=== PATIENT | male | born 1965 | race Caucasian/White ===

== ENCOUNTER 2024-08-30 05:27 | Inpatient (IN) | payer OTHER, SELFPAY ==
[2024-08-22 10:04] LABS: Absolute Lymphocyte Count 1.78 X10^3/uL (0.83-4.51); Absolute Neutrophil Count 4.9 X10^3/uL (2.0-7.7); Basophil# 0.07 X10^3/uL; Basophil% 0.9 % (0-1); Eosinophil# 0.18 X10^3/uL; Eosinophils% 2.4 % (0-5); Hematocrit 44.4 % (40-54); Hemoglobin 15.1 g/dL (13.0-16.5); Lymphocyte # 1.78 X10^3/ul (0.83-4.51); Lymphocyte % 23.6 % (19-41); Mean Corpuscular Volume 88.1 fL (80-94); Mean Platelet Vol. 9.9 fl (6.2-12.0); Monocyte# 0.55 X10^3/uL; Monocyte% 7.3 % (0-10); NRBC Flagged by Analyzer 0 % (0-5); Neutrophil % 65.1 % (47-70); Platelet Count 241 K/mm3 (150-450); RBC Distribution Width CV 13.2 % (11.6-14.6); RBC Distribution Width SD 42.5 fl (35.1-43.9); Red Blood Count 5.04 M/mm3 (4.6-6.2); White Blood Count 7.5 K/mm3 (4.4-11.0)
[2024-08-22 10:41] LABS: Magnesium 2.3 mg/dL (1.6-2.6)
[2024-08-22 10:59] LABS: Anion Gap 5 (5-15); BUN 13 mg/dL (7-18); BUN/Creat Ratio 14.2 RATIO (10-20); Calcium,Total 9.7 mg/dL (8.5-10.1); Chloride 107 mmol/L (98-107); Creatinine, Serum 0.91 mg/dL (0.70-1.30); EST Glomerular Filtration Rate 91 mL/min (>60); Est Glom Filt Rate - Afr Amer 110 mL/min (>60); Glucose 98 mg/dL (74-106); Potassium 3.8 mmol/L (3.5-5.1); Sodium Level 139 mmol/L (136-145)
[2024-08-22 11:12] LABS: HIV - WCH Non-Reactive (Nonreactive); Hepatitis B Surface Antibody Non-Reactive; Hepatitis C Antibody Non-Reactive (Nonreactive)
[2024-08-23 05:07] LABS: Hepatitis A AB, Total Negative (Negative)
[2024-08-30] MEDS: Magnesium 1 GM over 15 mins IV (06:05)
[2024-08-30] MEDS: 0.9% Normal Saline (1000mL) 1,000 ML 15 ML IV (06:05)
[2024-08-30 06:17] VITALS: BP 148/81; PULSE 90; RESP 18; TEMP 36.6; O2SAT 97; BMI 29.1
[2024-08-30] MEDS: Acetaminophen 500 MG Tablet 1000 MG PO (06:23)
[2024-08-30 06:54] VITALS: BP 148/81; PULSE 90; RESP 18; TEMP 36.6; O2SAT 97
[2024-08-30 07:51] LABS: Bedside Glucose 92 mg/dL (74-106)
[2024-08-30] MEDS: Cefazolin 2 GM in 0.9% Normal Saline (100mL Bag) 100 ML IV (07:51)
[2024-08-30 08:30] VITALS: BP 141/78; PULSE 108; RESP 16; TEMP 36.3; O2SAT 94
[2024-08-30 08:32] VITALS: BP 141/78; BP 148/81; PULSE 101; RESP 20; TEMP 36.3; O2SAT 91
[2024-08-30 08:35] VITALS: BP 138/79; BP 139/74; BP 148/81; PULSE 102; RESP 18; RESP 20; O2SAT 93
[2024-08-30 08:41] VITALS: BP 123/86; BP 148/81; PULSE 98; RESP 18; TEMP 36.3; O2SAT 93
== END 2024-08-30 10:09 | disposition home or self-care (01) | DRG 552 ==
LOC: ACINP 05:28
PROVIDERS: Anesthesiology; Admitting Provider Orthopaedic Surgery Orthopaedic Surgery of the Spine; PCP Family Medicine; Referring Provider Orthopaedic Surgery Orthopaedic Surgery of the Spine; Visit Provider Orthopaedic Surgery Orthopaedic Surgery of the Spine
DX: M51.16 Intervertebral disc disorders with radiculopathy, lumbar region (principal); E78.00 Pure hypercholesterolemia, unspecified; G25.81 Restless legs syndrome; M48.07 Spinal stenosis, lumbosacral region; M48.062 Spinal stenosis, lumbar region with neurogenic claudication; K21.9 Gastro-esophageal reflux disease without esophagitis; M51.370 Other intervertebral disc degeneration, lumbosacral region with discogenic back pain only; Z87.891 Personal history of nicotine dependence
CPT/HCPCS: 36415; 80048; 82962; 83735; 85025; 86703; 86706; 86708; 86803; 86850; 86900; 86901; 87081; 93005; J3475

== ENCOUNTER 2024-09-04 14:02 | Inpatient (IN) | payer OTHER, SELFPAY ==
[2024-09-04] VITALS (24 sets, daily range): BP systolic 121–164; BP diastolic 66–97; PULSE 84–122; RESP 15–18; TEMP 35.9–37.2; O2SAT 43–97; BMI 29.6
[2024-09-04] MEDS: Acetaminophen 500 MG Tablet 1000 MG PO ×2 (06:15→21:44)
[2024-09-04] MEDS: Magnesium 1 GM over 15 mins IV (06:26)
[2024-09-04] MEDS: 0.9% Normal Saline (1000mL) 1,000 ML 15 ML IV ×2 (06:30→13:15)
--- NOTE | 2024-09-04 06:30 | RAD_ITS ---
EXAM: FL FLUOROSCOPY < 1 HOUR CLINICAL INDICATION: ERAS, 360 LUMBAR FUSION L3-L4 L4-L5 L5-S1 TECHNIQUE: Fluoroscopic images performed in multiple projections. Fluoroscopic guidance was provided by a physician. 126.2 seconds, 53.47 mGy. COMPARISON: Lumbar spine radiographs, 06/26/2024. FINDINGS AND RAD/Lumbar Spine 2 or 3 Views IMPRESSION: Intraoperative fluoroscopic images utilized by the operative team. Refer to the operative note for complete details. Electronically Signed: Kenneth Craig DO at 23:27 EST ,
--- NOTE | 2024-09-04 06:42 | PRE.ANES_ITS ---
ASA Classification* ASA Classification ASA Classification: 2 Assessment & Plan Anesthesia* Anesthesia Assessment Anesthesia Assessment: Discussed sedation and/or anesthesia options, risks, benefits, and alternatives with patient/parents/legal guardian/POA. Questions invited. The patient/parents/legal guardian/POA seems to understand and agrees to proceed with anesthesia plan. Reviewed the physical assessment, medical history, allergy history and patient home medications list prior to surgery/procedure/anesthetic and documented any changes. Performed airway and anesthesia risk assessments. Anesthesia Type Anesthesia Type: General Anesthesia Focused Assessment* Temperature: 98.9 F Pulse Rate: 84 Blood Pressure: 129/70 Respiratory Rate: 16 Pulse Ox: 95 Airway Assessment Mouth opens: >3 cm Mallampati Score: II Focused Labs Anesthesia Preop lab: CBC WBC 7.5 K/mm3 (4.4-11.0) 08/22/24 09:36 RBC 5.04 M/mm3 (4.6-6.2) 08/22/24 09:36 Hgb 15.1 g/dL (13.0-16.5) 08/22/24 09:36 Hct 44.4 % (40-54) 08/22/24 09:36 Plt Count 241 K/mm3 (150-450) 08/22/24 09:36 CHEMISTRY Potassium 3.8 mmol/L (3.5-5.1) 08/22/24 09:36 Sodium 139 mmol/L (136-145) 08/22/24 09:36 Magnesium 2.3 mg/dL (1.6-2.6) 08/22/24 09:35 BUN 13 mg/dL (7-18) 08/22/24 09:36 Creatinine 0.91 mg/dL (0.70-1.30) 08/22/24 09:36 Glucose 98 mg/dL (74-106) 08/22/24 09:36 POC Glucose 92 mg/dL (74-106) 08/30/24 06:02 COAG Pre-Assessment Diagnosis/Proposed Procedure Planned Operative Procedure(s): ERAS 360 LUMBAR FUSION L3-4 L4-5,L5-S1 Anesthesia History 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 When Was Last Pacemaker Check QUESTION #4 FULL TEXT: You/Your Family Experience fever (hyperthermia) with Anesthesia Last Oral Intake Last Oral intake: Last Oral Intake NPO since 02:00 09/04/24 06:11 Meds taken in AM with sips of No 09/04/24 06:11 water? Meds patient instructed to take am of surgery PONV PONV - ditto machine operator: PONV - ditto machine operator Female No 08/31/24 11:07 HX of Motion Sickness Yes 08/31/24 11:07 HX of N/V After Surgery No 08/31/24 11:07 Non-Smoker Yes 08/31/24 11:07 Duration of Surgery greater Yes 08/31/24 11:07 than 60 minutes Number of Risk Factors 3 08/31/24 11:07 PONV Score Moderate Risk 08/31/24 11:07 Height & Weight Height & Weight: Anesthesia: Height & Weight Height 5 ft 8 in 09/04/24 06:11 Weight: 88.36 kg 09/04/24 06:11 Body Mass Index (BMI) 29.6 09/04/24 06:11 Respiratory Assessment Respiratory Assessment - ditto machine operator: Respiratory Tract Infection Hx - ditto machine operator Hx Respiratory Tract Infection No 08/31/24 11:07 STOP Sleep Apnea STOP Sleep Apnea - ditto machine operator: STOP Sleep Apnea - ditto machine operator Hx Hypertension No 08/31/24 11:07 Hx Sleep Apnea Yes 08/31/24 11:07 CPAP Yes 08/31/24 11:07 BIPAP No 08/31/24 11:07 Do you snore loudly (louder than talking or can be heard Do you often feel tired/ fatigued/ sleepy during daytime? Has anyone observed you stop breathing during sleep? STOP Results Positive 08/31/24 11:07 QUESTION #5 FULL TEXT : Do you snore loudly (louder than talking or can be heard through closed doors)? 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 Specify any problems Hx of Preganancy in last 3 N/A 08/31/24 11:07 Months Nurse Filling Out Transfusion DSCHRIBER 08/31/24 11:07 & Questions: Date: 08/31/24 08/31/24 11:07 Time: 11:09 08/31/24 11:07 Patient unable to answer at this time (ie. confused, unrespo /Reproduction History /Reproductive History - ditto machine operator: /Reproductive Hx- ditto machine operator Hx Now Gestational Age (in weeks): EDC: Hx Hx Para Hx Section SAB No 08/31/24 11:07 Active Medications Active Medications: Current Medications Generic Name Dose Route Start Last Admin Trade Name Freq PRN Reason Stop Dose Admin Acetaminophen 1,000 mg 09/04/24 07:30 09/04/24 06:15 Acetaminophen 500 Mg Tablet PO 09/04/24 07:31 1,000 mg X1 ONE Administration Tranexamic Acid 1,000 mg/ 110 mls @ 440 mls/hr 09/04/24 07:30 Sodium Chloride IV 09/04/24 07:44 X1 ONE Tranexamic Acid 1,000 mg/ 110 mls @ 440 mls/hr 09/04/24 07:30 Sodium Chloride IV 09/04/24 07:44 X1 ONE Cefazolin Sodium 2 gm/ N/A 20 mls @ 400 mls/hr 09/04/24 07:30 IV 09/04/24 07:32 PREOP ONE Sodium Chloride 1,000 mls @ 15 mls/hr 09/04/24 06:30 09/04/24 06:30 IV 09/09/24 19:49 15 mls/hr .Q48H VASYL Administration Protocol Insulin Human Lispro 1 - 6 unit 09/04/24 07:30 Insulin Lispro 100 Unit/Ml Insuln.Pen SC 09/04/24 18:00 Q4H PRN PRN BG>/= 180, SEE PROTOCOL Protocol PFSH Medical History Wears glasses Marijuana use History of steroid therapy Arthritis High cholesterol Restless legs Back pain Injury of back Migraine headache Injury of head and neck Gastric reflux Former smoker CPAP (continuous positive airway pressure) dependence Shortness of breath on exertion Numbness and tingling of both legs History of pain when walking History of edema History of stress test Home Medications ?Medication ?Instructions ?Recorded ?Last Taken ?Type atorvastatin 20 mg tablet 20 mg PO QDAY CHOLESTEROL 06/26/24 09/03/24 07:00 History hydrocodone-acetaminophen 5-325mg 1 tab PO Q8 PRN pain 06/26/24 Unknown History 5mg-325mg magnesium oxide 400 mg PO QDAY SUPPLEMENT 06/26/24 09/03/24 07:00 History multivitamin (Multiple Vitamins 1 tab PO QAM SUPPLEMENT 06/26/24 09/03/24 07:00 History tablet) omeprazole 20 mg capsule,delayed 20 mg PO QDAY GERD 06/26/24 09/04/24 03:00 History release cranberry 500 mg capsule 500 mg PO DAILY SUPPLEMENT 08/16/24 09/03/24 07:00 History Allergy/AdvReac Type Severity Reaction Status Date / Time No Known Allergies Allergy Verified 09/04/24 06:03 Family History Father CVA (cerebral vascular accident) Aunt Cancer Grandmother Heart disease Paternal Grandfather Heart disease Paternal Surgical History History of esophagogastroduodenoscopy (EGD) Hx of colonoscopy Hx of inguinal hernia repair Hx of inguinal hernia repair History of hernia surgery Social History household members: spouse Smoking Status: Former smoker quit date: 09/13/13 alcohol intake: current details: Umer Review of Systems (Anesthesia) ROS Narrative System reviewed and no additional complaints, except as documented.
--- NOTE | 2024-09-04 07:22 | PCM.HP.BLA ---
History and Physical Date of Admission: 09/04/24 MR#: [id number] Acct: [id number] Name: SAIRA DAVIS Sr. Rep #: [id number] : 1965 58 From: Evens Vaughn MD PCP: Dr. Christ Hayward MD Status: ADM IN Location: [place] [address] History and Physical Date of Admission: 08/30/24 MR#: [id number] Acct: [id number] Name: SAIRA DAVIS Rep #: [id number] : 1965 Provider: Dr. Evens Vaughn MD Age/Sex: 58/M Location: [facility] [place] Status: Signed Intake Vital Signs 06/26/2410:08 Height 5 ft 8 in Weight: 196 lb 8 oz BMI 29.8 Intake Visit Reasons: lumbar spine Chief Complaint: Lumbar Spine Pre-Op Accompanied by: Is patient in pain?: Yes Pain scale (1-10): 2 Allergies No Known Allergies Allergy (Verified 08/22/24 08:07) Medications ?Medication ?Instructions ?Recorded ?Confirmed ?Type atorvastatin 20 mg tablet 20 mg PO QDAY CHOLESTEROL 06/26/24 08/22/24 History hydrocodone-acetaminophen 5-325mg 1 tab PO Q8 PRN pain 06/26/24 08/22/24 History 5mg-325mg magnesium oxide 400 mg PO QDAY SUPPLEMENT 06/26/24 08/22/24 History multivitamin (Multiple Vitamins 1 tab PO QAM SUPPLEMENT 06/26/24 08/22/24 History tablet) omeprazole 20 mg capsule,delayed 20 mg PO QDAY GERD 06/26/24 08/22/24 History release cranberry 500 mg capsule 500 mg PO DAILY SUPPLEMENT 08/16/24 08/22/24 History PFSH Medical History Wears glasses Marijuana use History of steroid therapy Arthritis High cholesterol Restless legs Back pain Injury of back Migraine headache Injury of head and neck Gastric reflux Former smoker CPAP (continuous positive airway pressure) dependence Shortness of breath on exertion Numbness and tingling of both legs History of pain when walking History of edema History of stress test Surgical History History of esophagogastroduodenoscopy (EGD) Hx of colonoscopy Hx of inguinal hernia repair Hx of inguinal hernia repair History of hernia surgery Family History Father CVA (cerebral vascular accident)Aunt CancerGrandmother Heart disease PaternalGrandfather Heart disease Paternal Social History household members: spouse Smoking Status: Former smoker quit date: 09/13/13 alcohol intake: current details: Umer HERNANDEZ lumbar spine Details: This documentation accurately reflects the service provided and the decisions made by me, Dr. Evens Vaughn MD 08/22/24 0803. Part of today?s visit was documented by Amelia Negro ATC, acting as scribe. SAIRA DAVIS is a 58 year old M here today for pre-op lumbar 360 fusion DOS 08/30/2024. Patient states his pain isn't too bad today. He rates it a 2/10. Patient states the pain has gotten a little better but he has had targeted nerve root injections and he thinks these have helped. Patient states the last injection was 07/06/2024. 06/26/24: SAIRA DAVIS is a 58 year old M here today for Lumbar pain. Patient states his back been bothering him since 2006. Patient states he had a bulging disk. 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 Patient know he has spinal stenosis. Patient has been getting injections for 14 years. Patient had facet in Aug 2023 and a Epidural in May. Patient states the injections don't work as good as they use to. Patient sees Dr Dodson out of [place]. Patient is schedule for 07/06 for Nerve root injections. Patient was referred to Dr Swan for his back. Patient does have pain that shoots down his Bilateral legs to his ankles. Patient states left leg is worse. Patient states the thigh of his left leg is numb. Patient does have numbness and tingling down his legs left is worse. Left lower leg pain over the lateral calf. Patient states that his left leg doesn't feel stable and weak. Does say that his left knee has given out on him in the past. Says that the back pain is affecting him more than this leg pain. He has to lean forward when standing to get relief. Patient states that his legs feel like he is walking up a hill. Patient has done PT years ago, nothing recent. Patient takes Hydrocodone 325mg one every 8 hours as needed. Patient is taking Tylenol and Ibuprofen and Aleve daily. Ortho Exam General General: Yes no acute distress Neurologic: Yes alert and Yes oriented x3 Spine SPINE TESTING CERVICAL THORACIC LUMBAR Musculoskeletal Strength 0=absent - 5=normal Details: Neurological exam of the lower extremities shows 5x5 power. Normal sensations across all dermatomes. No hyperreflexia. No midline or paraspinal tenderness. Pain with extension. Coding Level of Care Code Off vis,est,level 4 Diagnoses Other intervertebral disc degeneration, lumbar region with discogenic back pain and lower extremity pain M51.362 Lumbar radiculopathy M54.16 Spinal stenosis of lumbar region with neurogenic claudication M48.062 Time Spent (min) 35 Assessment and Plan Assessment and Plan (1) Other intervertebral disc degeneration, lumbar region with discogenic back pain and lower extremity pain: Status: Acute (2) Lumbar radiculopathy: Status: Acute (3) Spinal stenosis of lumbar region with neurogenic claudication: Status: Acute Plan Again reviewed flexion/extension imaging today in the clinic. Reviewed prior xrays and MRI. Imaging shows L3-4, L4-5, and L5-S1 severe disc degeneration with disc height loss and Modic changes with left worse than right foraminal stenosis. No instability on flexion/extension views. Sagittal imbalance noticed. Again explained imaging findings in detail. He has developed severe left anterior thigh numbness which correlates with the L3-4 left foraminal stenosis when he has severe calf and foot pain and numbness with walking. His neurogenic claudication limits his walking to about 1-2 blocks at a time after which she has to find a place to sit down. He feels that he is hunched over significantly over the last few years due to worsening pain. He has had numerous injections for more than a decade which only helped temporarily. Discussed surgical options in detail including decompression alone versus decompression and fusion. Considering the sagittal imbalance and worsening axial back pain worse than the lower extremity symptoms, recommend L3-S1 into posterior fusion with indirect decompression. Discussed the surgery today and discussed risks and benefits. He has had a functional decrease over the last year and can not lift over 15 pounds. At this time, wishes to proceed with surgery after the first of the year around September-October. The risks of surgery include but are not limited to infection, bleeding, need for blood transfusion, nerve injury, vascular injury, visceral injury, ileus, need for further surgery, DVT, pulm embolism, cardiopulmonary event, hardware failure, pseudoarthrosis, adjacent segment degeneration, persistent pain, persistent weakness and numbness. Patient understands and agrees to proceed with surgery.
[2024-09-04] MEDS: Cefazolin 2 GM in Syringe IV ×3 (07:41→23:44)
[2024-09-04] MEDS: TRANEXAMIC ACID 1,000 MG in 0.9% Normal Saline (100mL Bag) 100 ML 440 MG IV ×2 (07:50→12:35)
[2024-09-04 09:04] LABS: Bedside Glucose 129 mg/dL (74-106)
[2024-09-04] MEDS: Ropivacaine 0.5% 30 ML Vial (12:16)
--- NOTE | 2024-09-04 13:37 | PCM.POST.ANE ---
Anesthesia: Postop Eval I Current Vital Signs Temperature: 97 F Pulse Rate: 118 Blood Pressure: 161/93 Respiratory Rate: 18 Pulse Ox: 96 Oxygen Delivery Method: Simple Mask Oxygen Flow Rate (L/min): 6 Assessment Airway patent: Yes Spontaneous unlabored respirations: Yes Mental status: Awake and Calm nausea: No Vomiting: No Anesthesia Complication: No Fluid Hydration Crystalloid volume administer (ml): 1,500 Total IV fluid infused: 1,500 Progress Note Anesthesia document: Postop Eval 1 completed: Yes
--- NOTE | 2024-09-04 13:51 | OP.PCM_ITS ---
Procedures Musculoskeletal [id number]-29xxx: Other Procedure See Report Operative Report (Standard) Operative Information Date of Procedure: 09/04/24 Pre-Operative Diagnosis: L3-S1 disc degeneration, stenosis with neurogenic claudication, radiculopathy Post-Operative Diagnosis: Same Surgery/Procedure Performed: L3-S1 oblique lumbar lumbar fusion dumper bailer operator: Yes Recycler Forklift Driver Truck Driver: Timi Mcdonnell Tasks completed by nurse first assist: Opening & closing, Dissecting tissue, Hemostasis: Electrocautery, Retracting and Other ([id number] surgery- access) Type of Anesthesia: General RN Documented Start/Stop Times: Operation Date: 09/04/24 07:30 Case Time Into Pre-Op 09/04/24 05:35 Out of Pre-Op 09/04/24 07:39 Anesthesia Start 09/04/24 07:41 Into Room 09/04/24 07:41 Procedure Start 09/04/24 08:22 Procedure End 09/04/24 12:58 Anesthesia End 09/04/24 13:31 Out of Room 09/04/24 13:31 Into Recovery 09/04/24 13:35 Procedure Start Time: 08:22 Procedure Stop Time: 12:58 Select all DRAINS/GRAFTS/IMPLANTS that apply: Graft Graft details: Allograft cancellous bone chips, autologous iliac crest bone marrow aspirate and Implanted device Implanted device details: DePuy cougar lateral lumbar interbody cage?peek Estimated Blood Loss: 150 cc Specimen collected: No Description of surgery: Preoperative diagnosis: L3-S1 disc degeneration, stenosis with neurogenic claudication Postoperative diagnosis: Same Name of procedures L3-S1 oblique lumbar interbody fusion (OLIF), minimally invasive left sided approach, lateral decubitus: ? L3-4 anterolateral spinal fusion 10479 ? L4-5 anterolateral fusion 80624/51 ? L5-S1 anterolateral fusion 75942/51 ? L3-4 insertion of cage 20526 ? L4-5 insertion of cage 64233/51 ? L5-S1 insertion of cage 76852/51 ? Bone graft aspirate left iliac crest separate incision ? Allograft cancellous chips Attending Surgeon: Dr. Evens Vaughn Co-surgeon: Dr. Timi Mcdonnell Estimated blood loss: 150 mL Anesthesia: General Complications: None Indications: Patient is a 58-year-old pleasant gentleman who has had a long history of low back pain and left lower extremity radiation, difficulty walking distances. Xrays & MRI revealed L3-S1 disc degeneration with stenosis especially foraminal worse on the left. After undergoing a prolonged period of nonoperative treatment, the patient elected to undergo surgical decompression & fusion. All surgical options were discussed with the patient including anterior and posterior approaches. All risks and benefits associated with the procedure were explained to the patient. The risks include but are not limited to infection, bleeding, injury to nerves and vessels including major vessels like IVC and aorta, persistent paresthesia, persistent pain, dural tear, need for further procedures, adjacent segment degeneration, pseudoarthrosis, hardware failure, retrograde ejaculation, paralytic ileus, etc. Procedure: The patient was identified in the preoperative holding suite using Unique patient identifiers. Skin was marked, consent was reviewed, and all questions were answered. The patient was then brought back to the operative room. A surgical timeout was performed to make sure correct procedure was being done on the correct patient and all operative room staff were on the same page. General endotracheal anesthesia was then given to the patient. Montes catheter was inserted. The patient was then carefully positioned in right lateral decubitus position with the left side up on a regular OR table. Axillary roll was placed and all bony prominences were well- padded. Hip positioners were placed in the posterior buttocks and anterior sternal area. The surgical area was prepped and draped in usual fashion. Preoperative antibiotic was injected IV as preoperative antibiotic. A final timeout was then again done just before starting the procedure. A 2 inch incision oblique was taken in the left lower quadrant of the abdomen 2 fingerbreadths away from the iliac crest and the lower ribs. Sharp dissection with Bovie was carried out up to the fascia covering the external oblique. The external oblique, internal oblique and transversus abdominis muscles were split along the muscle fibers and retroperitoneal space was entered. Sponge sticks were utilized to move the bowel and peritoneum [id number]-[id number]-way and psoas muscle was exposed staying within the retroperitoneal plane. [email or web address] retractor system was positioned and the retractor blade was applied onto the psoas. The interval between psoas and midline structures was developed and appropriate retractors were placed. Once adequate interval was cleared, a disc space was identified and a marker x-ray was taken. This identified the L4-5 disc level. The prepsoas interval was then traced inferiorly to expose the lateral aspect of the L5-S1 disc. This was also confirmed on x-rays. Small tributary to the left common iliac vein was identified and bipolar was used to coagulated. Annulotomy was done with a long handled knife. Pituitary was used to remove disc material. Curettes were used to prepare the endplates. Disc space spreaders were utilized to distract and increase the disc height. Near complete discectomy was performed. Trials of serially increasing sizes were used. A Jamshidi needle was used to aspirate bone marrow from the left anterior iliac crest through a separate incision and this aspirate was mixed with the allograft bone chips. A Depuy [place] cage of size of the 18 x 40 x 12 mm with 15 degrees lordosis was packed with corticocancellous allograft bone chips mixed with bone marrow aspirate. This was inserted into the L5-S1 disc space. The retractors were then repositioned to expose the L3-4 and L4-5 disc and the procedure was repeated with complete discectomy and endplate preparation. Smaller disc distractors were also used to bluntly perform a contralateral annulotomy at the L3-4 and L4-5 levels. Cage size was 18 x 45 x 12 mm at both L3-4 and L4-5. AP and lateral C-arm pictures were taken to confirm good position of the cage. Some bone chips were also packed around the cages. Screw with washer was placed into the lower L4 body with a washer partially covering the cage at L4-5. Hemostasis was confirmed. The retractor blades were removed. Closure was done in layers with a continuous strand of # 1 Vicryl in all muscle layers. 2-0 Vicryl was used for subcutaneous tissue and 4-0 for Monocryl for the skin. Steri-Strips were applied and 4 x 4 gauze and Tegaderm were applied. Surgical Findings: See operative note Complications Complications: No
--- NOTE | 2024-09-04 13:57 | OP.PCM_ITS ---
Procedures Musculoskeletal 20xxx-29xxx: Other Procedure See Report Operative Report (Standard) Operative Information Date of Procedure: 09/04/24 Pre-Operative Diagnosis: L3-S1 disc degeneration, stenosis with neurogenic claudication, radiculopathy Post-Operative Diagnosis: Same Surgery/Procedure Performed: L3-S1 posterior spinal instrumented fusion confectionery maker: Yes Online Advertising Analyst: Sushil Henderson Tasks completed by customer assistance associate: Closing, Implanting device and Retracting Type of Anesthesia: General RN Documented Start/Stop Times: Operation Date: 09/04/24 07:30 Case Time Into Pre-Op 09/04/24 05:35 Out of Pre-Op 09/04/24 07:39 Anesthesia Start 09/04/24 07:41 Into Room 09/04/24 07:41 Procedure Start 09/04/24 08:22 Procedure End 09/04/24 12:58 Anesthesia End 09/04/24 13:31 Out of Room 09/04/24 13:31 Into Recovery 09/04/24 13:35 Procedure Start Time: 08:22 Procedure Stop Time: 12:58 Select all DRAINS/GRAFTS/IMPLANTS that apply: Graft Graft details: Allograft cancellous bone chips, autologous iliac crest bone marrow aspirate and Implanted device Implanted device details: DePuy [employer] Sensor Internationaler prime pedicle screw instrumentation Estimated Blood Loss: 150 cc Specimen collected: No Description of surgery: Preoperative diagnosis: L3-S1 disc degeneration, stenosis with neurogenic claudication Postoperative diagnosis: Same Name of procedures: L3-S1 posterior percutaneous pedicle screw instrumented fusion, prone: ? L3-4 posterior spinal fusion 11775 ? L3-S1 posterior pedicle screw instrumentation 51098 ? L4-5 posterior fusion 20578/51 ? L5-S1 posterior fusion 25530/51 ? Allograft cancellous chips Attending Surgeon: Dr. Evens Vaughn Estimated blood loss: 150 mL (total for entire case) Anesthesia: General Complications: None Description of procedure: After the anterior procedure was complete, the patient was then turned supine. The patient was then transferred to Bright table in prone position. Back was prepped and draped in usual fashion. C-arm AP view was then taken. C-arm was positioned in a way that L3 was centralized and superior endplate of was parallel to the beam. Spinous process was centered between the pedicles. Midline was marked with skin marker and lateral borders of the pedicles were also marked. Skin marker was also utilized to bubba transversely across the middle of the pedicles at L3. 2 transverse paramedian incisions of 1 inch were placed. The fascia was incised vertically. Finger dissection was utilized to palpate the transverse process and facet joint. Viper Prime screws with towers were inserted and docked onto the transverse processes. This was then slowly moved medially to reach the superior articular process of L3. This was then confirmed on C-arm and then a mallet was utilized to drive the trocar into the pedicle going up to the medial wall of the pedicle on AP view. This was performed both sides. C-arm lateral view confirmed that the tip of the trocar was in the vertebral body, and the screw was advanced into the pedicle and vertebral body. This was repeated similarly at L5 and S1 bilaterally. Screw sizes were 7 x 50 mm at L3 bilaterally, and 7 x 45 mm at L5 and S1 on both sides. 100 mm precontoured titanium 5.5 mm lordotic nilson on the right and 90 mm on the left were then passed through the screw extensions and reduced down to the screws with the help of MobiK[employer] instrumentation system on both sides. AP and lateral view of the C-arm showed good positioning of the screws and cages. Final tightening with the torque screwdriver was then completed. Ioana was utilized to roughen the facet joint at L3-4, L4-5 and L5-S1 on the right side. Cancellous allograft bone chips mixed with bone marrow aspirate were then placed over this decorticated area. Hemostasis was achieved. Closure was done in layers with 0 Vicryls for the fascia, 2-0 Vicryls for the subcutaneous tissue, and Monocryl for the skin. Dermabond was applied. Dressings were applied covered with Tegaderm. The patient was then turned supine onto a hospital bed. The patient was extubated and taken to PACU in stable condition. The patient tolerated the procedure well and no complications occurred. DepInsurance Business Applicationsgar cage & Viper Prime minimally invasive pedicle screw instrumentation system was utilized in this case. No dural tear was identified intraoperatively. I was present for the entirety of the case and performed the surgery. Surgical Findings: See operative note Complications Complications: No
[2024-09-04] MEDS: Ketorolac 15 MG/ML Vial IV ×2 (14:54→23:54)
--- NOTE | 2024-09-04 15:10 | POSTOPAN2_ITS ---
Anesthesia Postop Eval I Sum Postop Eval Completion status Anesthesia document: Postop Eval 1 completed: Yes Anesthesia Postop Eval I Summary Anesthesia Postop Eval I Summary: Anesthesia Postop Eval I: Assessment Summary Airway patent Yes 09/04/24 13:38 STEREO EQUIPMENT [email or web address] Spontaneous unlabored Yes 09/04/24 13:38 STEREO EQUIPMENT REPAIRER.[email or web address] respirations Mental status Awake,Calm 09/04/24 13:38 STEREO EQUIPMENT [email or web address] nausea No 09/04/24 13:38 STEREO EQUIPMENT [email or web address] Vomiting No 09/04/24 13:38 STEREO EQUIPMENT REPAIRER.[email or web address] Anesthesia Postop Eval I: Fluid Summary Crystalloid volume administer 1,500 09/04/24 13:38 STEREO EQUIPMENT [email or web address] (ml) Colloids volume administered ( ml) Blood Product volume administered (ml) Total IV fluid infused 1,500 09/04/24 13:38 STEREO EQUIPMENT REPAIRER.[email or web address] Anesthesia Postop Eval I: Summary Notes Anesthesia Complication No 09/04/24 13:38 STEREO EQUIPMENT REPAIRER.[email or web address] Anesthesia Complication Comment: Post-operative progress note Anesthesia: Postop Eval II Evaluation Mental status: Awake and Calm Pain Level: 2 nausea: No Vomiting: No Complications Anesthesia Complication: No
--- NOTE | 2024-09-04 15:10 | PCM.POSTANE2 ---
Anesthesia Postop Eval I Sum Postop Eval Completion status Anesthesia document: Postop Eval 1 completed: Yes Anesthesia Postop Eval I Summary Anesthesia Postop Eval I Summary: Anesthesia Postop Eval I: Assessment Summary Airway patent Yes 09/04/24 13:38 PUBLIC EMPLOYMENT [email or web address] Spontaneous unlabored Yes 09/04/24 13:38 PUBLIC EMPLOYMENT MEDIATOR.[email or web address] respirations Mental status Awake,Calm 09/04/24 13:38 PUBLIC EMPLOYMENT MEDIATOR.[email or web address] nausea No 09/04/24 13:38 PUBLIC EMPLOYMENT MEDIATOR.[email or web address] Vomiting No 09/04/24 13:38 PUBLIC EMPLOYMENT MEDIATOR.[email or web address] Anesthesia Postop Eval I: Fluid Summary Crystalloid volume administer 1,500 09/04/24 13:38 PUBLIC EMPLOYMENT MEDIATOR.[email or web address] (ml) Colloids volume administered ( ml) Blood Product volume administered (ml) Total IV fluid infused 1,500 09/04/24 13:38 PUBLIC EMPLOYMENT MEDIATOR.[email or web address] Anesthesia Postop Eval I: Summary Notes Anesthesia Complication No 09/04/24 13:38 PUBLIC EMPLOYMENT MEDIATOR.[email or web address] Anesthesia Complication Comment: Post-operative progress note Anesthesia: Postop Eval II Evaluation Mental status: Awake and Calm Pain Level: 2 nausea: No Vomiting: No Complications Anesthesia Complication: No
[2024-09-04] MEDS: Ondansetron 4 MG/2 ML Vial IV (15:47)
[2024-09-04] MEDS: Morphine 4 MG/ML Syringe IV (15:47)
[2024-09-04] MEDS: 0.9% Saline Lock 10 ML Syringe IV ×3 (16:38→23:54)
[2024-09-04] MEDS: oxyCODONE 5 MG Tablet PO (16:38)
--- NOTE | 2024-09-04 16:43 | PN.HOSP_ITS ---
Subjective Subjective 58-year-old male hx of GERD and SONIA presented to [facility] 09/04/2024 for L3-S1 disc degeneration, stenosis with neurogenic claudication, and radiculopathy and underwent L3-S1 posterior spinal instrumented fusion with Dr. Vaughn 09/04/24. Hospitalist consulted for postoperative medical management. Patient evaluated at bedside postoperatively, he is currently being readjusted due to having some pain, denies any shortness of breath but O2 sat is low to mid 90s who is presently being placed on CPAP for further comfort. Aside from pain he denied any other new or acute complaints Objective Data Objective Data Vital Signs: Vital Signs Temp Pulse Resp BP Pulse Ox O2 Del Method O2 Flow Rate 97.7 F L 111 H 15 139/66 H 92 CPAP 4 09/04/24 15:38 09/04/24 15:38 09/04/24 15:38 09/04/24 15:38 09/04/24 16:23 09/04/24 16:23 09/04/24 16:23 Oxygen Flow Rate (L/min) 4 Oxygen Delivery Method CPAP Weight: 88.36 kg Body Mass Index (BMI) 29.6 Intake & Output: Intake and Output for Last 24 Hours 09/02/24 09/03/24 09/04/24 23:59 23:59 23:59 Intake Total 1389 / 1389 Output Total 400 / 400 Balance 989 / 989 Lab / Micro Data Labs: Laboratory Results - last 24 hr 09/04/24 06:02: POC Glucose 129 H Physical Exam Narrative General: Alert, oriented, trying to get comfortable HEENT: Atraumatic, normocephalic Eyes: Anicteric, normal conjunctiva, extraocular movements grossly intact Neck: Supple Respiratory: Clear to auscultation bilaterally, normal respiratory effort Cardiovascular: Regular rate and rhythm GI: Soft, nontender, nondistended Extremities: No edema Musculoskeletal: Moving all extremities Neuro: No overt focal neurological deficits Skin: No rashes appreciated Psych: Cooperative Assessment & Plan Assessment/Plan (1) Lumbar radiculopathy: PLAN: Plan # Postoperative hypoxia -Patient not in respiratory distress -Presently 93% on nasal cannula but being placed on CPAP as he is laying down in bed and still has nasal cannula requirement -I/S -Monitor clinically, can consider chest x-ray or further workup if this persists however given lack of further worsening with no wheezes or rhonchi and patient not complaining of any shortness of breath feel, feel it is reasonable to try to wean O2 and monitor clinically first #GERD -Continue PPI #SONIA -Continue home NIPPV # L3-S1 disc degeneration, stenosis with neurogenic claudication, and radiculopathy - underwent L3-S1 posterior spinal instrumented fusion with Dr. Vaughn 09/04/24 -Management per primary #DVT ppx: At the discretion of primary Julieta Mccray MD Time spent in the patient's overall evaluation, decision-making process, review of diagnostic data, adjustment of management, discussion with other providers, nursing and ancillary staff involved in patient's care documentation, 21 Minutes Charges/Coding Visit Charges Office Visits / Consults: 40540 OV L3 Est 20min
--- NOTE | 2024-09-04 17:05 | PCM.OPRPT ---
Operative Report (Standard) Operative Information Date of Procedure: 09/04/24 Pre-Operative Diagnosis: L3-S1 disc degeneration, stenosis with neurogenic claudication Post-Operative Diagnosis: same Surgery/Procedure Performed: L3-S1 oblique lumbar interbody fusion (OLIF), minimally invasive left sided approach, lateral decubitus: ? L3-4 anterolateral spinal fusion 77025 ? L4-5 anterolateral fusion 72542/51 ? L5-S1 anterolateral fusion 83037/51 ? L3-4 insertion of cage 96023 ? L4-5 insertion of cage 44146/51 ? L5-S1 insertion of cage 78059/51 ? Bone graft aspirate left iliac crest separate incision ? Allograft cancellous chips foster care social worker: No Type of Anesthesia: General RN Documented Start/Stop Times: Operation Date: 09/04/24 07:30 Case Time Into Pre-Op 09/04/24 05:35 Out of Pre-Op 09/04/24 07:39 Anesthesia Start 09/04/24 07:41 Into Room 09/04/24 07:41 Procedure Start 09/04/24 08:22 Procedure End 09/04/24 12:58 Anesthesia End 09/04/24 13:31 Out of Room 09/04/24 13:31 Into Recovery 09/04/24 13:35 Out of Recovery 09/04/24 15:34 Procedure Start Time: 08:22 Procedure Stop Time: 11:00 Select all DRAINS/GRAFTS/IMPLANTS that apply: Graft Graft details: Allograft cancellous bone chips, autologous iliac crest bone marrow aspirate and Implanted device Implanted device details: DePuy cougar lateral lumbar interbody cage?peek Estimated Blood Loss: 150 Specimen collected: No Description of surgery: HPI: Patient is a 58-year-old male with multilevel lumbar degenerative disc disease and neurogenic claudication. He has been evaluated by Dr. Vaughn and felt to be appropriate for L3-L4, L4-L5, L5-S1 oblique lumbar interbody fusion. Vascular surgery assistance is requested for exposure. Description of procedure: Upon obtaining form consent and verification correct patient procedure site patient was taken to the operating where he was placed under general anesthesia. He was then positioned prepped and draped in usual sterile fashion time was performed. Skin incision was made parallel to the left iliac crest above electrocautery was dissect down through subcutaneous tissue down to the level the fascia. Hand-held retractors then put in position utilized to develop sufficient working space superficial to the fascia. Fascia was then incised and the muscle layers of the abdominal wall split parallel to their fibers individually and hand-held retractors moved deeper into the wound. Once the transversalis was split blunt dissection was then utilized to mobilize the retroperitoneum until the psoas muscle was visualized. At this point the Syn frame self-retaining retractor system was put into position and blades placed to expose the psoas and the lateral aspect of the vertebral column. At this point blunt and Bovie dissection was utilized to further mobilize the tissue until the elbow for L5 disc was visualized. At this point the position was confirmed with fluoroscopy and Bovie utilized to bubba the disc for later intervention. We then turned our attention distally dissecting down to the L5-S1 disc space with self-retaining retractor blades repositioned. Once the disc was visualized position was confirmed with fluoroscopy and at this point Dr. Vaughn performed discectomy and implant which she will describe separately in further detail. Once this was completed we then turned our attention to the L4-L5 disc space. Again Dr. Vaughn performed the discectomy which she will describe in further detail and Gelfoam was placed in the disc base. Finally combination of blunt and Bovie dissection was utilized to dissect free the L3-L4 disc space. Once satisfactory visualization was obtained Dr. Vaughn performed discectomy and implant placement which she will describe in further detail. Finally we returned to the elbow for L5 disc the implant placement will be described by Dr. Vaughn and separate dictation. The retroperitoneum was then inspected for hemostasis and self-retaining retractors removed from position allowing the abdominal contents to return to their position. The superficial wound was then copiously irrigated and the muscle layer was closed individually with running 1 Vicryl suture. After each of the muscle layers were closed the subcutaneous wound was further irrigated and the skin closed with 3-0 Vicryl followed by 4 Monocryl. Dry sterile dressings were then applied and the patient was repositioned for posterior approach which Dr. Vaughn will describe in his dictation. Surgical Findings: See above Complications Complications: No
[2024-09-04] MEDS: proCHLORPERazine 10 MG/2 ML Vial 5 MG IV (17:25)
[2024-09-04] MEDS: Methocarbamol 500 MG Tablet 1000 MG PO ×2 (18:20→21:44)
[2024-09-04] MEDS: Senna/Docusate Sodium 1 Tablet 2 TABLET PO (21:44)
[2024-09-05] VITALS (7 sets, daily range): BP systolic 129–146; BP diastolic 65–88; PULSE 97–105; RESP 16–18; TEMP 36.6–37.1; O2SAT 94–99
[2024-09-05] MEDS: Acetaminophen 500 MG Tablet 1000 MG PO ×3 (05:57→21:17)
--- NOTE | 2024-09-05 06:00 | RAD_ITS ---
INDICATION: Status post lumbar fusion -- Please do upright AP lateral on postop day 1 brooks EXAMINATION/TECHNIQUE: X-RAY - XR Spine Lumbar 2 or 3 Views COMPARISON: Prior study dated: 06/26/2024 FINDINGS: Surgical hardware posterior vertical bars, pedicle screws and interbody devices from L3 to S1. The vertebral bodies are normal in height. No definite fracture demonstrated. No subluxation. No paravertebral soft tissue mass identified. RAD/Lumbar Spine 2 or 3 Views IMPRESSION: Postsurgical changes with hardware in place. No subluxation. Electronically Signed: Edda Jama MD at 8:12 EST ,
[2024-09-05 07:51] LABS: Hematocrit 38.9 % (40-54); Mean Corp Hgb Conc 33.4 g/dL (32-36); Mean Corpuscular Hgb 30.1 pg (27.0-32.0); Mean Platelet Vol. 9.6 fl (6.2-12.0); Platelet Count 209 K/mm3 (150-450); RBC Distribution Width CV 13.3 % (11.6-14.6); RBC Distribution Width SD 43.9 fl (35.1-43.9); Red Blood Count 4.32 M/mm3 (4.6-6.2); White Blood Count 12.9 K/mm3 (4.4-11.0)
[2024-09-05] MEDS: oxyCODONE 5 MG Tablet PO ×4 (07:55→21:16)
[2024-09-05] MEDS: Ketorolac 15 MG/ML Vial IV (07:55)
[2024-09-05] MEDS: 0.9% Saline Lock 10 ML Syringe IV ×2 (07:56→21:16)
[2024-09-05 08:17] LABS: Anion Gap 6 (5-15); BUN 14 mg/dL (7-18); BUN/Creat Ratio 14.1 RATIO (10-20); Calcium,Total 8.5 mg/dL (8.5-10.1); Chloride 102 mmol/L (98-107); Creatinine, Serum 0.99 mg/dL (0.70-1.30); EST Glomerular Filtration Rate 83 mL/min (>60); Est Glom Filt Rate - Afr Amer 100 mL/min (>60); Estimated Creatinine Clearance 90.01 ml/min; Glucose 120 mg/dL (74-106); Potassium 3.8 mmol/L (3.5-5.1); Sodium Level 138 mmol/L (136-145)
[2024-09-05] MEDS: Multivitamins,Therapeutic Tablet 1 TABLET PO (10:01)
[2024-09-05] MEDS: Meloxicam 15 MG Tablet PO (10:01)
[2024-09-05] MEDS: Methocarbamol 500 MG Tablet 1000 MG PO ×4 (10:01→21:17)
[2024-09-05] MEDS: Magnesium Chloride 64 MG Delay Rel.Tablet 128 MG PO (10:01)
[2024-09-05] MEDS: Pantoprazole Sodium 20 MG Tablet PO (10:01)
[2024-09-05] MEDS: Atorvastatin Calcium 20 MG Tablet PO (10:02)
[2024-09-05] MEDS: Senna/Docusate Sodium 1 Tablet 2 TABLET PO ×2 (10:02→21:18)
[2024-09-05] MEDS: Bisacodyl 5 MG Tablet PO (10:02)
--- NOTE | 2024-09-05 11:58 | CASEMGMT ---
BOOKER EASON Assessment: Face to Face with pt for initial transition planning/care coordination assessment. BOOKER EASON introduced self and role at [facility], pt voices understanding and consents to assessment. Pt is A&O x4 and answers all questions appropriately at this time. Pt sitting up in chair in no distress. Care providers, pharmacy, and demographics verified/updated. Admitting Dx: s/p lumbar fusion Strata Score: 1 PCP:[facility] Specialists:[facility], pain mgmt; [facility] in [place], cannot recall the name Preferred Pharmacy: [facility] Insurance: [employer] Prescription Benefit: yes LNOK: Kimi Stoll, Living Arrangements: Pt lives with in a single story home with 13 steps to enter with a rail. Pt reports prior to surgery he was I in ADLs and IADLs. Pt denies concerns at home. Transportation: Pt drives self and denies concerns with transportation. Pt will transport pt until he can drive again. DME:cpap, cane, ww, [facility] HHC/SNF: Denies hx of Pt states no concerns with going home at time of dc. Pt states no further concerns/needs. CM to follow. Advised pt to ask CM if any further question/concerns/needs arise, voices understanding. Pt Goal: Home Plan: Home Chuck CELESTE CM
--- NOTE | 2024-09-05 13:35 | PCM.PN.ORT ---
Subjective Subjective Postop day 1 status post L3-S1 fusion. No flatus yet. Tolerating liquid diet. Had some low oxygen saturations last night but improved with CPAP, which he routinely uses for sleep apnea. Voiding urine spontaneously. Objective Data Objective Data Vital Signs: Vital Signs Temp Pulse Resp BP Pulse Ox O2 Del Method O2 Flow Rate 98.5 F 105 H 18 138/80 H 99 Room Air 3 09/05/24 08:04 09/05/24 08:04 09/05/24 08:04 09/05/24 08:04 09/05/24 08:04 09/05/24 08:04 09/04/24 21:43 Oxygen Flow Rate (L/min) 3 Oxygen Delivery Method Room Air Weight: 194 lb 12.8 oz Body Mass Index (BMI) 29.6 Intake & Output: Intake and Output for Last 24 Hours 09/03/24 09/04/24 09/05/24 23:59 23:59 23:59 Intake Total 1429 / 1429 1000 / 1000 Output Total 800 / 800 2100 / 2100 Balance 629 / 629 -1100 / -1100 Lab / Micro Data 09/05/24 07:41 09/05/24 07:41 Labs: Laboratory Results - last 24 hr 09/05/24 07:41: WBC 12.9 H, RBC 4.32 L, Hgb 13.0, Hct 38.9 L, MCV 90.0, MCH 30.1, MCHC 33.4, RDW Std Deviation 43.9, RDW Coeff of Tara 13.3, Plt Count 209, MPV 9.6, Sodium 138, Potassium 3.8, Chloride 102, Carbon Dioxide 30.0, Anion Gap 6, BUN 14, Creatinine 0.99, Estim Creat Clear Calc 90.01, Est GFR (MDRD) Af Amer 100, Est GFR (MDRD) Non-Af 83, BUN/Creatinine Ratio 14.1, Glucose 120 H, Calcium 8.5 Radiography Diagnostic Testing: Radiology Impression Lumbar Spine X-Ray 09/04/24 06:30 IMPRESSION: Intraoperative fluoroscopic images utilized by the operative team. Refer to the operative note for complete details. Electronically Signed: Kenneth Craig DO at 23:27 EST , Lumbar Spine X-Ray 09/05/24 06:00 IMPRESSION: Postsurgical changes with hardware in place. No subluxation. Electronically Signed: Edda Jama MD at 8:12 EST , Physical Exam Narrative Dressing?CDI. Neurologic motion lower extremity shows 5 x 5 power normal shows normal sensations in all dermatomes. Assessment & Plan Assessment/Plan (1) Status post lumbar spinal fusion: PLAN: Plan Postop day 1 status post L3-S1 fusion. Patient doing well. No flatus yet. Will continue clear liquids until passing flatus. Once he passes flatus, he can advance to solid food, and if he tolerates a solid meals, okay to go home. Patient on Dulcolax and senna. Will advance with suppository tomorrow morning if no gas. X-rays reviewed, look good. PT cleared. Follow-up in clinic in 2 weeks.
--- NOTE | 2024-09-05 17:32 | PCM.PN.HOSP ---
Reason for Visit Reason for Visit: Diagnoses Radiculopathy, lumbar region (09/04/24) Arthrodesis status (09/04/24) Subjective Subjective Patient was seen and examined today, he has not yet had flatus, if he passes flatus orthopedic surgery has released him to be discharged. Objective Data Objective Data Vital Signs: Vital Signs Temp Pulse Resp BP Pulse Ox O2 Del Method O2 Flow Rate 98.8 F 103 H 18 129/77 H 96 Room Air 3 09/05/24 15:50 09/05/24 15:50 09/05/24 15:50 09/05/24 15:50 09/05/24 15:50 09/05/24 15:50 09/04/24 21:43 Oxygen Flow Rate (L/min) 3 Oxygen Delivery Method Room Air Weight: 88.36 kg Body Mass Index (BMI) 29.6 Intake & Output: Intake and Output for Last 24 Hours 09/03/24 09/04/24 09/05/24 23:59 23:59 23:59 Intake Total 1429 / 1429 1000 / 1000 Output Total 800 / 800 2100 / 2100 Balance 629 / 629 -1100 / -1100 Lab / Micro Data 09/05/24 07:41 09/05/24 07:41 Labs: Laboratory Results - last 24 hr 09/05/24 07:41: WBC 12.9 H, RBC 4.32 L, Hgb 13.0, Hct 38.9 L, MCV 90.0, MCH 30.1, MCHC 33.4, RDW Std Deviation 43.9, RDW Coeff of Tara 13.3, Plt Count 209, MPV 9.6, Sodium 138, Potassium 3.8, Chloride 102, Carbon Dioxide 30.0, Anion Gap 6, BUN 14, Creatinine 0.99, Estim Creat Clear Calc 90.01, Est GFR (MDRD) Af Amer 100, Est GFR (MDRD) Non-Af 83, BUN/Creatinine Ratio 14.1, Glucose 120 H, Calcium 8.5 Radiography Diagnostic Testing: Radiology Impression Lumbar Spine X-Ray 09/04/24 06:30 IMPRESSION: Intraoperative fluoroscopic images utilized by the operative team. Refer to the operative note for complete details. Electronically Signed: Kenneth Craig DO at 23:27 EST , Lumbar Spine X-Ray 09/05/24 06:00 IMPRESSION: Postsurgical changes with hardware in place. No subluxation. Electronically Signed: Edda Jama MD at 8:12 EST , Physical Exam Const alert, oriented x3, no apparent distress, average body habitus and healthy appearing General Appearance: cooperative, well kempt and well developed Orientation / Consciousness: awake, oriented to person, oriented to place and oriented to time HEENT normocephalic, head/scalp atraumatic and moist oral mucous membranes Eyes PERRL, EOMs intact bilaterally and conjunctivae normal Neck supple, no JVD, thyroid normal and no carotid bruits General: trachea midline Resp normal respiratory effort, no retractions, no use of accessory muscles and clear to auscultation bilaterally Auscultation: Negative for rales, rhonchi or wheezes Cardio regular rate, regular rhythm, S1 normal heart sound, S2 normal heart sound, no murmurs, no rub and no gallops GI normal to inspection, nondistended, normoactive bowel sounds, soft to palpation, non-tender and non-distended Extremity no clubbing, cyanosis or edema Skin no rashes or lesions noted General Skin Exam: no breakdown Neuro oriented x3, CN's II-XII intact bilaterally, moves all extremities, no focal motor deficits and no sensory deficits noted Sensorium / Orientation: awake and alert Speech: speech normal Psych affect normal Assessment & Plan Assessment/Plan (1) Status post lumbar spinal fusion: PLAN: Plan 1. Hyperlipidemia-patient is on atorvastatin daily #2 GERD-patient is on a PPI #3 degenerative joint disease of the lumbar spine-status post L3- S1 fusion, PT and OT continue to work with patient Total clinical time spent by myself addressing the patient's medical issues, reviewing all of his data, and collaborating with patient's care team: 25 minutes Charges/Coding Visit Charges Inpatient E&M: 43469 Subs Hosp L1
[2024-09-05] MEDS: Ondansetron 4 MG/2 ML Vial IV (21:16)
[2024-09-06] MEDS: oxyCODONE 5 MG Tablet PO ×3 (01:54→10:27)
[2024-09-06 02:10] VITALS: BP 142/82; PULSE 91; RESP 16; TEMP 36.6; O2SAT 93
[2024-09-06] MEDS: Acetaminophen 500 MG Tablet 1000 MG PO ×2 (06:05→13:41)
[2024-09-06] MEDS: Methocarbamol 500 MG Tablet 1000 MG PO ×2 (06:05→13:41)
[2024-09-06 07:51] VITALS: BP 139/89; PULSE 102; RESP 18; TEMP 36.9; O2SAT 98
[2024-09-06] MEDS: Multivitamins,Therapeutic Tablet 1 TABLET PO (08:17)
[2024-09-06] MEDS: Meloxicam 15 MG Tablet PO (10:28)
[2024-09-06] MEDS: Magnesium Chloride 64 MG Delay Rel.Tablet 128 MG PO (10:28)
[2024-09-06] MEDS: Senna/Docusate Sodium 1 Tablet 2 TABLET PO (10:28)
[2024-09-06] MEDS: Pantoprazole Sodium 20 MG Tablet PO (10:29)
[2024-09-06] MEDS: Atorvastatin Calcium 20 MG Tablet PO (10:29)
[2024-09-06] MEDS: Bisacodyl 5 MG Tablet PO (10:29)
[2024-09-06 14:25] VITALS: BP 142/79; PULSE 117; RESP 16; TEMP 37; O2SAT 98
== END 2024-09-06 14:05 | disposition home or self-care (01) | DRG 427 ==
PROVIDERS: Admitting Provider Orthopaedic Surgery Orthopaedic Surgery of the Spine; PCP Family Medicine; Referring Provider Orthopaedic Surgery Orthopaedic Surgery of the Spine; Visit Provider Orthopaedic Surgery Orthopaedic Surgery of the Spine
DX: M48.062 Spinal stenosis, lumbar region with neurogenic claudication (principal); J95.89 Other postprocedural complications and disorders of respiratory system, not elsewhere classified; E78.00 Pure hypercholesterolemia, unspecified; G25.81 Restless legs syndrome; M48.07 Spinal stenosis, lumbosacral region; K21.9 Gastro-esophageal reflux disease without esophagitis; G47.33 Obstructive sleep apnea (adult) (pediatric); M54.16 Radiculopathy, lumbar region; G43.909 Migraine, unspecified, not intractable, without status migrainosus; M19.90 Unspecified osteoarthritis, unspecified site; M51.16 Intervertebral disc disorders with radiculopathy, lumbar region; Z87.891 Personal history of nicotine dependence; M51.362 Other intervertebral disc degeneration, lumbar region with discogenic back pain and lower extremity pain; Z99.89 Dependence on other enabling machines and devices; R09.02 Hypoxemia; X58.XXXA Exposure to other specified factors, initial encounter
CPT/HCPCS: 36415; 72100; 76000; 80048; 82962; 85027; 94668; 94762; 97162; 97166; 97535; A4648; C1713; A4216; J2405; J3475